=== PATIENT | male | born 1965 | race Caucasian/White ===

== ENCOUNTER → 2019-05-13 | Emergency (ER) | payer MEDICAID ==
[~2019-05-13] VITALS: Wt 105.0 kg
[~2019-05-13] MED LIST: ERYT1OIN6 LEFT EYE; FLUORESCEIN STRIP LEFT EYE ONE; KETO5DRO21 LEFT EYE; NAPH30DR3 LEFT EYE; TETRACAINE 0.5% 4 ML OPH LEFT EYE ONE
--- NOTE | 2019-05-13 14:18 | ERD ---
ER Documentation Chief Complaint Chief Complaint LEFT EYE PAIN FROM A METAL PIECE OR POSSIBLE FOREIGN BODY X 1 DAY HPI 54-year-old male presents to ED complaining of left eye pain x1 day. He states that he was wielding metal yesterday afternoon and thinks a piece of metal fell in his eye. He states that he thought it would get better over time but it has not. He states the pain is 7 out of 10 intensity and scratching in character. He denies any vision changes. He denies any previous injury to the eye. He states that he does not wear glasses or contacts. He denies any other symptoms or complaints at this time. He has not taken any medication except Clear Eyes. In demand axel was used for translation Patient reports past medical history for diabetes and hypertension She denies allergies Patient denies any surgeries ROS All systems reviewed and are negative except as per history of present illness. Medications Home Meds Active Scripts Erythromycin Base (Erythromycin) 1 Gm Oint...g., 1 APPLIC LEFT EYE QID for 5 Days Prov:RILEY BUTTERFIELD PA-C 05/13/19 Ketorolac Tromethamine Oph (Ketorolac Tromethamine Oph) 0.5%-5 Ml Opht Drops, 1 DROP LEFT EYE QID for 3 Days, EA Prov:RILEY BUTTERFIELD PA-C 05/13/19 Naphazoline Hcl* (Clear Eyes Redness Relief* 0.1%) 30 Ml Drops, 2 DROP LEFT EYE Q4H PRN for EYE REDNESS for 14 Days, EA Prov:RILEY BUTTERFIELD PA-C 05/13/19 PMhx/Soc Hx Alcohol Use: No Hx Substance Use: No Hx Tobacco Use: No Smoking Status: Never smoker FmHx Family History: No diabetes Physical Exam Vitals Vital Signs Date Temp Pulse Resp B/P (MAP) Pulse Ox O2 O2 Flow FiO2 Time Delivery Rate 05/13/19 97.5 78 18 128/76 98 10:30 (93) Physical Exam Const: No acute distress Head: Atraumatic Eyes: Normal Conjunctiva, PERRLA Left eye: slightly red sclera, pingueculum present, vision acutiy normal ENT: Normal External Ears, Nose and Mouth. Neck: Full range of motion. No meningismus. Resp: Clear to auscultation bilaterally Cardio: Regular rate and rhythm, no murmurs Abd: Soft, non tender, non distended. Normal bowel sounds Skin: No petechiae or rashes Back: No midline or flank tenderness Ext: No cyanosis, or edema Neur: Awake and alert Psych: Normal Mood and Affect Results 24 hrs Current Medications Medications Dose Sig/Marcelo Start Time Status Last (Trade) Ordered Route PRN Stop Time Admin Dose Reason Admin Fluorescein 1 strip ONCE ONCE 05/13/19 DC Sodium LEFT EYE 14:00 (Muflh-S-Wjoh 05/13/19 14:01 p) Tetracaine 1 drop ONCE ONCE 05/13/19 DC HCl LEFT EYE 14:00 (Tetracaine 05/13/19 14:01 0.5% Steri-Unit Jessie) Procedures/MDM ED COURSE: The patient was stable throughout ED course. I kept the patient informed of laboratory and diagnostic imaging results throughout the ED course. PROCEDURES:Fluorescein stain MEDICATIONS GIVEN: Tetracaine Patient tolerated medication well with no adverse reactions. Patient reported improvement in pain. MEDICAL DECISION MAKING: Patient is a 54-year-old male complaining of left eye pain x1 day after wielding metal yesterday. He has concerns for foreign body in his eye. On physical exam as a PERRLA. His left eye has slight redness of the sclera and pingueculum present. No changes in visual acuity was noted. Patient was numbed with tetr acaine and fluorescein staining under Alva lamp was performed. One small foreign body was seen and removed from the eye without any complications. H&P and other data not c/w emergent process (eg. glaucoma, keratitis, globe perf, corneal ulcer). Patient was given prescriptions and told to follow-up with his eye doctor the next 1 to 2 days. vital signs were reviewed. Patient is afebrile. Patient was not hypoxic. Patient was hemodynamically stable. Patient was told to follow up with primary care for further care and management. PRESCRIPTION: Ketoralac, clear eyes, erythromycin DISCHARGE: At this time, patient is stable for discharge and outpatient management. I have instructed the patient to follow-up with his/her primary care physician in 1-2 days. I have discussed with the patient the possibility of needing to see a specialist for further workup and imaging studies if symptoms persist. I have instructed the patient to promptly return to the ER for any new or worsening symptoms including increased pain, fever, nausea, vomiting, weakness or LOC. The patient expressed understanding of and agreement with this plan. All questions w ere answered. Home care instructions were provided. Disclaimer: Inadvertent spelling and grammatical errors are likely due to EHR/dictation software use and do not reflect on the overall quality of patient care. Also, please note that the electronic time recorded on this note does not necessarily reflect the actual time of the patient encounter. Departure Diagnosis: Primary Impression: Foreign body, eye Encounter type: initial encounter Laterality: left Qualified Codes: T15.92XA - Foreign body on external eye, part unspecified, left eye, initial encounter Condition: Fair Patient Instructions: Corneal Foreign Body, Removed Referrals: [facility] YOU HAVE RECEIVED A MEDICAL SCREENING EXAM AND THE RESULTS INDICATE THAT YOU DO NOT HAVE A CONDITION THAT REQUIRES URGENT TREATMENT IN THE EMERGENCY DEPARTMENT. FURTHER EVALUATION AND TREATMENT OF YOUR CONDITION CAN WAIT UNTIL YOU ARE SEEN IN YOUR DOCTORS OFFICE WITHIN THE NEXT 1-2 DAYS. IT IS YOUR RESPONSIBILITY TO MAKE AN APPOINTMENT FOR FOLOW-UP CARE. IF YOU HAVE A PRIMARY DOCTOR --you should call your primary doctor and schedule an appointment IF YOU DO NOT HAVE A PRIMARY DOCTOR YOU CAN CALL OUR PHYSICIAN REFERRAL HOTLINE AT IF YOU CAN NOT AFFORD TO SEE A PHYSICIAN YOU CAN CHOSE FROM THE FOLLOWING [facility] [address] [facility]. [facility] [address] [facility]. [facility] [address] [facility] [facility] [address] [facility] [facility]. [facility] [address] [facility]. [facility]. [address] [facility]. [facility] YOU HAVE RECEIVED A MEDICAL SCREENING EXAM AND THE RESULTS INDICATE THAT YOU DO NOT HAVE A CONDITION THAT REQUIRES URGENT TREATMENT IN THE EMERGENCY DEPARTMENT. FURTHER EVALUATION AND TREATMENT OF YOUR CONDITION CAN WAIT UNTIL YOU ARE SEEN IN YOUR DOCTORS OFFICE WITHIN THE NEXT 1-2 DAYS. IT IS YOUR RESPONSIBILITY TO MAKE AN APPOINTMENT FOR FOLOW-UP CARE. IF YOU HAVE A PRIMARY DOCTOR --you should call your primary doctor and schedule and appointment IF YOU DO NOT HAVE A PRIMARY DOCTOR YOU CAN CALL OUR PHYSICIAN REFERRAL HOTLINE AT . IF YOU CAN NOT AFFORD TO SEE A PHYSICIAN YOU CAN CHOSE FROM THE FOLLOWING [facility] INSTITUTIONS: [facility] [address] [place] [address] [facility] [address] [place] [address] [facility] [address] [place] [address] [facility] Hours: Mon - Fri 9:00 AM - 5:00 PM Additional Instructions: Follow-up with an eye doctor in the next 1 to 2 days for further care management. Phone numbers to an eye clinic are located in the packet Llame al doctor MAANA y maliha mary ellen GADIEL PARA DENTRO DE 1-2 ALMONTE.Dgale a la secretaria que nosotros le instruimos hacer esta gadiel.Avise o llame si griffin condicin se empeora antes de la gadiel. Regresa aqui si peor o no mejor. RILEY BUTTERFIELD PA-C May 13, 2019 14:18
[2019-05-13 14:33] VITALS: BP 133/81; PULSE 62; RESP 18
== END | disposition home or self-care (01) ==
LOC: FTE 10:27
DX: T15.92XA Foreign body on external eye, part unspecified, left eye, initial encounter (principal); X58.XXXA Exposure to other specified factors, initial encounter; Y92.9 Unspecified place or not applicable
CPT/HCPCS: Z7502; Z7610; 99283